=== PATIENT | female | born 2000 | race Caucasian/White ===

== ENCOUNTER 2023-06-11 19:08 | Emergency (ER) | payer MEDICAID ==
[~2023-06-11] VITALS: Ht 165.1 cm; Wt 80.7 kg
[2023-06-11 19:19] VITALS: BP_SYST 123; PULSE 75; RESP 19; TEMP 97.7; O2SAT 98
[2023-06-11 22:44] LABS: BASOPHILS % (AUTO) 0.3 % (0.0-2.0); EOSINOPHILS # (AUTO) 0.1 K/uL (0.0-0.4); EOSINOPHILS % (AUTO) 0.6 % (0.0-4.0); HEMATOCRIT 37.2 % (36-48); HEMOGLOBIN 12.5 g/dL (12.0-16.0); LYMPHOCYTES # (AUTO) 1.9 K/uL (1.0-5.5); LYMPHOCYTES % (AUTO) 16.5 % (20.5-51.5); MEAN CORPUSCULAR HEMOGLOBIN 29 pg (27-31); MEAN CORPUSCULAR HGB CONC 34 % (32-36); MEAN CORPUSCULAR VOLUME 86 fL (79.0-98.0); MONOCYTES # (AUTO) 0.6 K/uL (0.0-1.0); MONOCYTES % (AUTO) 5.6 % (1.7-9.3); NEUTROPHILS # (AUTO) 8.7 K/uL (1.8-7.7); PLATELET COUNT (AUTO) 356 K/uL (130-430); RED BLOOD CELL COUNT(AUTO) 4.31 MIL/uL (4.2-6.2); RED CELL DISTRIBUTION WIDTH 13.4 % (9.0-15.0); WHITE BLOOD COUNT (AUTO) 11.4 K/uL (4.8-10.8)
[2023-06-11 22:50] LABS: CALCIUM 8.4 mg/dL (8.4-11.0); CREATININE 0.72 mg/dL (0.55-1.30); POTASSIUM 4.5 mmol/L (3.5-5.1)
[2023-06-11 22:55] LABS: BILIRUBIN,URINE NEGATIVE (NEGATIVE); BLOOD, URINE NEGATIVE (NEGATIVE); COLOR,URINE YELLOW (YELLOW); GLUCOSE,URINE NEGATIVE (NEGATIVE); KETONES,URINE NEGATIVE (NEGATIVE); LEUKOCYTE ESTERASE ,URINE NEGATIVE (NEGATIVE); NITRITE, URINE NEGATIVE (NEGATIVE); PROTEIN URINE NEGATIVE (NEGATIVE)
[2023-06-11 23:02] LABS: CLARITY/URINE SLIGHTLY HAZY (CLEAR); UROBILINOGEN,URINE >=8 (0.2-1.0)
[2023-06-11] MEDS ORDERED: IBUP-1969 PO (23:23)
[2023-06-11 23:31] VITALS: BP_SYST 124; PULSE 73; RESP 20; TEMP 97.7; O2SAT 98
== END 2023-06-11 23:31 | disposition home or self-care (01) ==
LOC: SED 19:08
DX: R53.1 Weakness (principal); R07.9 Chest pain, unspecified; R42 Dizziness and giddiness; Z79.899 Other long term (current) drug therapy
CPT/HCPCS: 36415; 71045; 80048; 81001; 81003; 81025; 85025; 93005; 99285

== ENCOUNTER 2023-08-19 08:08 | Emergency (ER) | payer MEDICAID ==
[~2023-08-19] VITALS: Ht 165.1 cm; Wt 77.1 kg
[~2023-08-19 08:08] MED LIST: IBUP-1969 PO
[2023-08-19 08:16] VITALS: BP_SYST 138; PULSE 83; RESP 18; TEMP 98.3; O2SAT 100
[2023-08-19 08:45] LABS: BILIRUBIN,URINE NEGATIVE (NEGATIVE); BLOOD, URINE NEGATIVE (NEGATIVE); CLARITY/URINE CLEAR (CLEAR); COLOR,URINE YELLOW (YELLOW); GLUCOSE,URINE NEGATIVE (NEGATIVE); KETONES,URINE NEGATIVE (NEGATIVE); LEUKOCYTE ESTERASE ,URINE 2+ (NEGATIVE); NITRITE, URINE NEGATIVE (NEGATIVE); PH,URINE 8.5 (5.0-8.0); PROTEIN URINE NEGATIVE (NEGATIVE)
[2023-08-19] MEDS: ONDANSETRON 4 MG ODT TAB PO ONE (08:56)
[2023-08-19 09:09] LABS: BACTERIA,URINE FEW /HPF (None Seen); MUCUS,URINE 1+ /LPF (None Seen); RBC,URINE 0-3 /HPF (0-3)
[2023-08-19] MEDS ORDERED: NITR-85 PO (09:49)
[2023-08-19] MEDS ORDERED: TRAM50TA2 PO (09:49)
[2023-08-19] MEDS ORDERED: ONDA-8 TL (09:49)
[2023-08-19 10:01] VITALS: BP_SYST 138; PULSE 83; RESP 18; TEMP 98.3; O2SAT 100
== END 2023-08-19 10:03 | disposition home or self-care (01) ==
LOC: SED 08:08
DX: N39.0 Urinary tract infection, site not specified (principal); R11.10 Vomiting, unspecified; Z79.899 Other long term (current) drug therapy; Z79.2 Long term (current) use of antibiotics
CPT/HCPCS: 99283; 81001; 87086; 81025; Q0162; 81000; 81015; 87186